=== PATIENT | male | born 1960 | race Caucasian/White ===

== ENCOUNTER 2022-08-03 14:53 | Outpatient (CLI) | payer MEDICARE, SELFPAY ==
--- NOTE | ~2022-08-03 | CT_ITS ---
EXAMINATION: CT abdomen pelvis wo con DATE: 08/03/2022 15:21 INDICATION: Left ureteral stone TECHNIQUE: Computed tomography (CT) of the abdomen and pelvis was performed without intravenous contr ast. Automated exposure control and iterative reconstruction technique were employed. Exam dose: 113 2.93 mGy-cm total exam DLP. COMPARISON: None. FINDINGS: There is mild bilateral lower lobe dependent atelectasis. Normal heart size. Coronary arter y calcifications. No pericardial or pleural effusion. 12 mm stone in the dependent aspect of the gallbladder. No pericholecystic fluid or fat stranding. No bile duct or pancreatic duct dilatation. No hepatic, splenic, pancreatic, and adrenal or renal space-occupying mass lesion is evident on this limited noncontrast examination. Pinpoint nonobstructing lower pole left renal calculus. Possible very slight pinpoint nonobstructing lower pole right renal calculus. No other urinary tract calculus. Mild right hydronephrosis and mild asymmetric right perinephric and periureteral stranding are noted. Consider right urinary tract infection versus recent passage of calculus. Normal appendix. No bowel obstruction or intraperitoneal free air. Status post posterior surgical fusion at T9-T11. Degenerative changes of the thoracic and particularl y lumbar spine IMPRESSION: Nonspecific right perinephric and periureteral stranding, mild right hydronephrosis; con brim presser right urinary tract infection/pyelonephritis versus recent passage of a calculus Possible very slight pinpoint nonobstructing lower pole right renal calculus Pinpoint nonobstructing lower pole left renal calculus Cholelithiasis Reviewed, dictated and finalized at [facility]. Reviewed, dictated and finalized at [facility]. IMPRESSION: Nonspecific right perinephric and periureteral stranding, mild rig ht hydronephrosis; consider right urinary tract infection/pyelonephritis versus recent passage of a calculus Possible very slight pinpoint nonobstructing lower pole right renal calculus Pinpoint nonobstructing lower pole left renal calculus Cholelithiasis
== END 2022-08-03 14:54 | disposition home or self-care (01) ==
PROVIDERS: Visit Provider Urology
DX: N20.1 Calculus of ureter (principal); N20.0 Calculus of kidney; K80.20 Calculus of gallbladder without cholecystitis without obstruction
CPT/HCPCS: 74176